=== PATIENT | male | born 1955 | race Caucasian/White ===

== ENCOUNTER 2019-05-14 11:30 | Emergency (ER) | payer MEDICAID ==
[~2019-05-14] VITALS: Ht 167.6 cm; Wt 75.0 kg
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
[2019-05-14 13:49] VITALS: BP 162/92
[2019-05-14] MEDS ORDERED: HYDROcodone/acetaminophen 5mg/325mg tablet PO ONE (13:55)
[2019-05-14] MEDS ORDERED: ondansetron 4mg rapidly disintigrating tab PO ONE (13:55)
[2019-05-14] MEDS ORDERED: ACET-812 PO (14:03)
== END 2019-05-14 14:21 | disposition home or self-care (01) ==
LOC: ER 11:30
DX: F07.81 Postconcussional syndrome (principal); R51 Headache; M54.2 Cervicalgia; R42 Dizziness and giddiness; Z88.6 Allergy status to analgesic agent; Z79.899 Other long term (current) drug therapy
CPT/HCPCS: 70450; 72125; 99284

== ENCOUNTER 2019-07-24 01:01 | Emergency (ER) | payer MEDICAID, OTHER ==
[~2019-07-24] VITALS: Ht 165.1 cm; Wt 72.7 kg
[2019-07-24] MEDS ORDERED: labetalol 100mg tablet PO ONE (01:25)
[2019-07-24] MEDS ORDERED: acetaminophen 325mg tablet PO ONE (01:25)
[2019-07-24 01:39] LABS: BASOPHILS # (AUTO) 0.1 X10'3 (0-0.2); BASOPHILS % (AUTO) 0.6 % (0-1); EOSINOPHILS # (AUTO) 0.3 X10'3 (0-0.9); EOSINOPHILS % (AUTO) 3.1 % (0-6); HEMATOCRIT 41.7 % (42.0-52.0); HEMOGLOBIN 14.2 g/dl (14.0-17.9); LYMPHOCYTES # (AUTO) 1.7 X10'3 (1.1-4.8); LYMPHOCYTES % (AUTO) 18.7 % (21-51); MEAN CORPUSCULAR HEMOGLOBIN 31.5 PG (27.0-31.0); MEAN CORPUSCULAR VOLUME 92.6 FL (78-98); MEAN PLATELET VOLUME 8.1 FL (7.4-10.4); MONOCYTES # (AUTO) 0.8 X10'3 (0-0.9); MONOCYTES % (AUTO) 8.9 % (2-12); NEUTROPHILS # (AUTO) 6.3 X10'3 (1.8-7.7); NEUTROPHILS % (AUTO) 68.7 % (42-75); PLATELET COUNT 246 X10'3 (140-440); RED CELL DISTRIBUTION WIDTH 13.1 % (11.5-14.5); WHITE BLOOD COUNT 9.2 X10'3 (4.5-11.0)
[2019-07-24 01:46] LABS: ALANINE AMINOTRANSFERASE 26 U/L (12-78); ALBUMIN/GLOBULIN RATIO 1.2 (1.1-1.5); ALKALINE PHOSPHATASE 66 IU/L (46-116); ANION GAP 6 (8-16); ASPARTATE AMINO TRANSFERASE 20 U/L (10-37); BILIRUBIN,TOTAL 0.2 MG/DL (0.1-1.0); BLOOD UREA NITROGEN 29 MG/DL (7-18); BUN/CREATININE RATIO 21.5 (5.4-32.0); CALCIUM 8.6 MG/DL (8.5-10.1); CHLORIDE 106 MMOL/L (99-107); CREATININE 1.35 MG/DL (0.60-1.10); GLUCOSE 111 MG/DL (70-104); POTASSIUM 4.2 MMOL/L (3.5-5.1); SODIUM 139 MMOL/L (135-145); TOTAL PROTEIN 7.3 G/DL (6.4-8.2); eGFR 54 ML/MIN
[2019-07-24] MEDS ORDERED: AMLO10TA PO (02:04)
[2019-07-24 02:11] VITALS: BP 180/104
== END 2019-07-24 02:12 | disposition home or self-care (01) ==
LOC: ER 01:01
DX: I10 Essential (primary) hypertension (principal); Z88.6 Allergy status to analgesic agent; Z79.899 Other long term (current) drug therapy
CPT/HCPCS: 36415; 71045; 80053; 84484; 85025; 93005; 99285

== ENCOUNTER 2020-01-02 02:17 | Inpatient (IN) | payer OTHER ==
[~2020-01-02] VITALS: Ht 167.6 cm; Wt 78.0 kg
[~2020-01-02 02:17] MED LIST: AMLO10TA PO
[2020-01-02] MEDS ORDERED: hydrALAZINE 20mg/ml inj. IV ONE ×2 (02:35→03:30)
[2020-01-02 03:06] LABS: BASOPHILS % (AUTO) 0.3 % (0-1); EOSINOPHILS # (AUTO) 0.2 X10'3 (0-0.9); EOSINOPHILS % (AUTO) 1.8 % (0-6); HEMATOCRIT 45.6 % (42.0-52.0); HEMOGLOBIN 15.2 g/dl (14.0-17.9); LYMPHOCYTES % (AUTO) 15.1 % (21-51); MEAN CORPUSCULAR HEMOGLOBIN 31.6 PG (27.0-31.0); MEAN CORPUSCULAR HGB CONC 33.3 g/dL (33.0-36.5); MEAN CORPUSCULAR VOLUME 94.8 FL (78-98); MEAN PLATELET VOLUME 8.1 FL (7.4-10.4); MONOCYTES # (AUTO) 1.2 X10'3 (0-0.9); MONOCYTES % (AUTO) 9.3 % (2-12); NEUTROPHILS # (AUTO) 9.7 X10'3 (1.8-7.7); NEUTROPHILS % (AUTO) 73.5 % (42-75); PLATELET COUNT 279 X10'3 (140-440); RED BLOOD COUNT 4.81 X10'6 (4.70-6.10); RED CELL DISTRIBUTION WIDTH 13.7 % (11.5-14.5); WHITE BLOOD COUNT 13.2 X10'3 (4.5-11.0)
[2020-01-02 03:14] LABS: ALANINE AMINOTRANSFERASE 58 U/L (12-78); ALBUMIN 4.1 G/DL (3.4-5.0); ALBUMIN/GLOBULIN RATIO 1.1 (1.1-1.5); ALKALINE PHOSPHATASE 66 IU/L (46-116); ANION GAP 13 (8-16); ASPARTATE AMINO TRANSFERASE 110 U/L (10-37); BILIRUBIN,TOTAL 0.1 MG/DL (0.1-1.0); BLOOD UREA NITROGEN 22 MG/DL (7-18); BUN/CREATININE RATIO 14.4 (5.4-32.0); CALCIUM 9.1 MG/DL (8.5-10.1); CHLORIDE 100 MMOL/L (99-107); CREATININE 1.53 MG/DL (0.60-1.10); GLUCOSE 111 MG/DL (70-104); POTASSIUM 4.1 MMOL/L (3.5-5.1); SODIUM 136 MMOL/L (135-145); TOTAL CARBON DIOXIDE 23.5 MMOL/L (24-32); TOTAL PROTEIN 7.7 G/DL (6.4-8.2); eGFR 46 ML/MIN
[2020-01-02 03:18] LABS: URINE AMPHETAMINE SCREEN NEGATIVE (Neg); URINE BARBITUATE SCREEN NEGATIVE (Neg); URINE BENZODIAZEPINES SCREEN NEGATIVE (Neg); URINE CANNABINOID SCREEN NEGATIVE (Neg); URINE COCAINE SCREEN NEGATIVE (Neg); URINE METHADONE SCREEN NEGATIVE (Neg); URINE OPIATE SCREEN NEGATIVE (Neg); URINE PHENCYCLIDINE SCREEN NEGATIVE (Neg)
[2020-01-02] MEDS ORDERED: normal saline 1000ML IV soln IVB ONE (03:40)
[2020-01-02] MEDS ORDERED: iohexol 350MG/ML 100ml bottle IV ONE (03:42)
[2020-01-02 03:49] LABS: D-DIMER 0.41 MG/L FEU (0-0.50)
[2020-01-02] MEDS ORDERED: LORazepam 2 mg/ml vial IV ONE (03:50)
[2020-01-02 03:59] LABS: CKMB RELATIVE INDEX 0.1 RATIO (0-2.5); CREATINE KINASE 4641 U/L (39-308)
[2020-01-02 04:07] LABS: CLARITY,URINE CLEAR (Clear); COLOR,URINE YELLOW (Yellow); GLUCOSE, URINE NEGATIVE (Neg); KETONES,URINE NEGATIVE (Neg); LEUKOCYTE ESTERASE ,URINE NEGATIVE (Neg); NITRITES, URINE NEGATIVE (Neg); OCCULT BLOOD,URINE TRACE-LYSED (Neg); PH,URINE 5.5 (4.8-8.0); PROTEIN,URINE NEGATIVE (Neg); UROBILINOGEN,URINE 0.2 E.U/dL (0.2-1.0)
[2020-01-02 04:08] LABS: UA COLLECTION TYPE URINAL
[2020-01-02 04:35] LABS: BACTERIA,URINE NONE SEEN /HPF (Neg); MUCUS STRANDS NONE SEEN /LPF (Neg); RBC,URINE 0-2 /HPF (0-2); SQUAMOUS EPITHELIAL CELL,UR FEW /LPF (FEW); WBC,URINE NONE SEEN /HPF (0-4)
[2020-01-02] MEDS ORDERED: ondansetron/PF 4mg/2ml inj IV PRN (09:45)
[2020-01-02] MEDS ORDERED: atorvastatin 10mg tablet PO SCH (09:45)
[2020-01-02] MEDS ORDERED: magnesium hydroxide 30ml (MOM) UD suspension PO PRN (09:45)
[2020-01-02] MEDS ORDERED: magnesium 2GM in 50ml NS 50 ML IV PRN (09:45)
[2020-01-02] MEDS ORDERED: magnesium 4gm in 100ml NS 100 ML IV PRN (09:45)
[2020-01-02] MEDS ORDERED: normal saline 1000ml 1,000 ML IV SCH (09:45)
[2020-01-02] MEDS ORDERED: potassium Cl 20 mEq SR tablet PO PRN ×2 (09:45)
[2020-01-02] MEDS ORDERED: acetaminophen 650mg rectal suppository RC PRN (09:45)
[2020-01-02] MEDS ORDERED: potassium CL 10mEq/100ml bag 100 ML IV PRN ×2 (09:45)
[2020-01-02] MEDS ORDERED: morphine 2 MG/ML inj. syringe IV PRN ×2 (09:45)
[2020-01-02] MEDS ORDERED: hydrALAZINE 20mg/ml inj. IV PRN (09:45)
[2020-01-02] MEDS ORDERED: HYDROcodone/acetaminophen 5mg/325mg tablet PO PRN (09:45)
[2020-01-02] MEDS ORDERED: diphenhydrAMINE 25mg capsule PO PRN (09:45)
[2020-01-02] MEDS ORDERED: acetaminophen 325mg tablet PO PRN ×2 (09:45)
[2020-01-02] MEDS ORDERED: bisacodyl 10mg suppository rectal RC PRN (09:45)
[2020-01-02] MEDS ORDERED: magnesium Cl slow-release 64mg tablet PO PRN (09:45)
[2020-01-02] MEDS ORDERED: mag hydrox/Alum hydrox/simeth 30ml oral suspension PO PRN (09:45)
[2020-01-02] MEDS ORDERED: HYDROcodone/acetaminophen 10/325mg tab PO PRN (09:45)
[2020-01-02] MEDS ORDERED: amLODIPine 5mg tablet PO SCH (09:55)
[2020-01-02] MEDS ORDERED: metoprolol succinate 25mg (24-HOUR) SR. Tablet PO SCH (09:55)
[2020-01-02 10:33] LABS: CHOL/HDL RATIO 2.7 (0.00-4.99); CHOLESTEROL 135 MG/DL (0-200); HDL CHOLESTEROL 50 MG/DL (35-60); HEMOGLOBIN A1C 5.9 % (4.5-6.2); LDL CHOLESTEROL 75 MG/DL (50-100); TRIGLYCERIDES 45 MG/DL (20-135)
[2020-01-02 10:50] VITALS: BP 139/85
[2020-01-02 11:24] VITALS: BP_SYST 139
--- NOTE | 2020-01-02 11:41 | NUR ---
PAGER ID: [phone] MESSAGE: [id number] Nancy Rice- patient wants to leave A. Gretchen [phone]
--- NOTE | 2020-01-02 11:50 | NUR ---
Explained to patient that he was just given blood pressure medications and it is hot outside. Patient said he still wants to leave and will figure it out.
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
--- NOTE | 2020-01-02 11:51 | NUR ---
PAGER ID: [phone] MESSAGE: [id number] Nancy Rice- patient just left AMA- signed paper did not want to wait to speak with you. Gretchen [phone]
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
[2020-01-02] MEDS ORDERED: heparin, porcine 5000 units/ml vial SQ SCH (20:00)
[2020-01-02] MEDS ORDERED: K and/or MAG REPLACEMENT MC SCH (20:00)
[2020-01-02] MEDS ORDERED: temazepam 15mg capsule PO PRN (21:00)
[2020-01-03] MEDS ORDERED: aspirin 81mg tablet.DR PO SCH (08:00)
== END 2020-01-02 11:45 | disposition left against medical advice (07) | DRG 305 ==
LOC: ER 02:17 → ED HOLD 09:45 → EDBEDREQ 10:17 → ORTHO 4S 11:00
PROVIDERS: ADMIT Family Medicine; ATTEND Family Medicine
PROC: B32T1ZZ Computerized Tomography (CT Scan) of Left Pulmonary Artery using Low Osmolar Contrast (ICD-10-PCS; principal; 2020-01-02)
PROC: B3201ZZ Computerized Tomography (CT Scan) of Thoracic Aorta using Low Osmolar Contrast (ICD-10-PCS; 2020-01-02)
PROC: B32S1ZZ Computerized Tomography (CT Scan) of Right Pulmonary Artery using Low Osmolar Contrast (ICD-10-PCS; 2020-01-02)
PROC: B4201ZZ Computerized Tomography (CT Scan) of Abdominal Aorta using Low Osmolar Contrast (ICD-10-PCS; 2020-01-02)
PROC: B4241ZZ Computerized Tomography (CT Scan) of Superior Mesenteric Artery using Low Osmolar Contrast (ICD-10-PCS; 2020-01-02)
PROC: B4281ZZ Computerized Tomography (CT Scan) of Bilateral Renal Arteries using Low Osmolar Contrast (ICD-10-PCS; 2020-01-02)
PROC: B4211ZZ Computerized Tomography (CT Scan) of Celiac Artery using Low Osmolar Contrast (ICD-10-PCS; 2020-01-02)
DX: I16.1 Hypertensive emergency (principal); M62.82 Rhabdomyolysis; F17.200 Nicotine dependence, unspecified, uncomplicated; F41.1 Generalized anxiety disorder; I10 Essential (primary) hypertension; Z53.29 Procedure and treatment not carried out because of patient's decision for other reasons; M41.9 Scoliosis, unspecified; N28.9 Disorder of kidney and ureter, unspecified; F32.9 Major depressive disorder, single episode, unspecified; G43.909 Migraine, unspecified, not intractable, without status migrainosus; Z88.5 Allergy status to narcotic agent
CPT/HCPCS: 36415; 70450; 71045; 71275; 74174; 80053; 80061; 80305; 81001; 82550; 82553; 83036; 83605; 83735; 83880; 84145; 84439; 84443; 84484; 85025; 85379; 85651; 87040; 93005; 99285; G0378; J0360; J2060; J7030; Q9967

== ENCOUNTER → 2020-02-29 | Emergency (ER) | payer OTHER ==
[~2020-02-29] VITALS: Ht 167.6 cm; Wt 75.0 kg
[~2020-02-29] MED LIST changes: +ACET-1025 PO; +AMLO-708 PO; -AMLO10TA PO; +AMLO2.5T2 PO; +ASPI81TA52 PO; +ATOR20TA PO; +CLON-529 PO; +HYDR25TA4 PO; +LISI-600 PO; +LORazepam 2 mg/ml vial IV ONE; +MELO-102 PO; +nitroGLYCERIN 0.4mg SUBLingual tab SL ONE; +ondansetron/PF 4mg/2ml inj IV ONE
[2020-02-29 04:19] LABS: BASOPHILS # (AUTO) 0.1 X10'3 (0-0.2); EOSINOPHILS # (AUTO) 1.4 X10'3 (0-0.9); MONOCYTES # (AUTO) 0.8 X10'3 (0-0.9)
[2020-02-29 04:22] LABS: BASOPHILS % (AUTO) 0.7 % (0-1); EOSINOPHILS % (AUTO) 14.2 % (0-6); HEMATOCRIT 38.1 % (42.0-52.0); HEMOGLOBIN 12.9 g/dl (14.0-17.9); LYMPHOCYTES # (AUTO) 3.3 X10'3 (1.1-4.8); LYMPHOCYTES % (AUTO) 32.2 % (21-51); MEAN CORPUSCULAR HEMOGLOBIN 31.6 PG (27.0-31.0); MEAN CORPUSCULAR HGB CONC 33.8 g/dL (33.0-36.5); MEAN CORPUSCULAR VOLUME 93.4 FL (78-98); MEAN PLATELET VOLUME 7.9 FL (7.4-10.4); MONOCYTES % (AUTO) 8.1 % (2-12); NEUTROPHILS # (AUTO) 4.5 X10'3 (1.8-7.7); NEUTROPHILS % (AUTO) 44.8 % (42-75); PLATELET COUNT 125 X10'3 (140-440); RED BLOOD COUNT 4.08 X10'6 (4.70-6.10); RED CELL DISTRIBUTION WIDTH 12.9 % (11.5-14.5); WHITE BLOOD COUNT 10.1 X10'3 (4.5-11.0)
[2020-02-29 04:30] LABS: ALANINE AMINOTRANSFERASE 31 U/L (12-78); ALBUMIN 3.9 G/DL (3.4-5.0); ALBUMIN/GLOBULIN RATIO 1.1 (1.1-1.5); ALKALINE PHOSPHATASE 43 IU/L (46-116); ANION GAP 10 (8-16); ASPARTATE AMINO TRANSFERASE 20 U/L (10-37); BILIRUBIN,TOTAL 0.1 MG/DL (0.1-1.0); BLOOD UREA NITROGEN 27 MG/DL (7-18); BUN/CREATININE RATIO 20.9 (5.4-32.0); CALCIUM 8.7 MG/DL (8.5-10.1); CHLORIDE 102 MMOL/L (99-107); CREATININE 1.29 MG/DL (0.60-1.10); GLUCOSE 119 MG/DL (70-104); POTASSIUM 4.1 MMOL/L (3.5-5.1); SODIUM 137 MMOL/L (135-145); TOTAL CARBON DIOXIDE 25.1 MMOL/L (24-32); TOTAL PROTEIN 7.3 G/DL (6.4-8.2); eGFR 56 ML/MIN
[2020-02-29 06:52] LABS: CLARITY,URINE CLEAR (Clear); COLOR,URINE YELLOW (Yellow); GLUCOSE, URINE NEGATIVE (Neg); KETONES,URINE NEGATIVE (Neg); LEUKOCYTE ESTERASE ,URINE NEGATIVE (Neg); NITRITES, URINE NEGATIVE (Neg); OCCULT BLOOD,URINE NEGATIVE (Neg); PROTEIN,URINE NEGATIVE (Neg); UROBILINOGEN,URINE 0.2 E.U/dL (0.2-1.0)
[2020-02-29 06:54] LABS: UA COLLECTION TYPE VOIDED
[2020-02-29 08:10] VITALS: BP 97/66
== END ==
LOC: EEVIPCON 03:50 → ER 03:50
DX: I12.9 Hypertensive chronic kidney disease with stage 1 through stage 4 chronic kidney disease, or unspecified chronic kidney disease (principal); N18.9 Chronic kidney disease, unspecified; G43.909 Migraine, unspecified, not intractable, without status migrainosus; Z88.6 Allergy status to analgesic agent; Z79.82 Long term (current) use of aspirin; Z79.899 Other long term (current) drug therapy
CPT/HCPCS: 36415; 71045; 80053; 81003; 83880; 84484; 85025; 93005; 96374; 96375; 96376; 99285; J2060; J2405